=== PATIENT | female | born 1935 | race Caucasian/White ===

== ENCOUNTER → 2016-08-21 | Day surgery (SDC) | payer MEDICARE, OTHER ==
[~2016-08-21] VITALS: Ht 160 cm; Wt 61.8 kg
[~2016-08-21] MED LIST: 0.9% Sodium Chloride 1,000 ML IV ONE; Atropine 0.4 mg/mL Inj IVPUSH PRN; CALC-140 PO; CHOL100045 PO; CYAN100017 SL; Dexamethasone 4 mg/mL Inj IVPUSH PRN; EPHEDrine Sulfate 50 mg/mL Inj IVPUSH PRN; FENO67CA PO; GABA-500 PO; Glucagon 1 mg/mL Inj IV ONE; HYDR-656 PO; Labetalol 5 mg/mL 4 mL Inj IV PRN; Lactated Ringer's 1,000 ML IV ONE; Lactated Ringer's 1,000 ML IV SCH; Lactated Ringer's 500 ML IV PRN; MONT10TA23 PO; MULT1CAP33 PO; OMEG1CAP56 PO; OMEP20CA11 PO; Ondansetron 2 mg/mL 2 mL Inj IVPUSH PRN; Phenylephrine 10,000 mCg/mL Inj IVPUSH PRN; Propofol 10,000 mCg/mL 20 mL Inj ONE; fentaNYL-PF 50 mCg/mL 2 mL Inj IVPUSH PRN; fentaNYL-PF 50 mCg/mL 2 mL Inj ONE
[2016-08-21 12:12] VITALS: BP 155/88; RESP 16; O2SAT 99
--- NOTE | 2016-08-21 12:58 | ED.REPORT ---
HPI-General Illness Date of Service Aug 21, 2016 ED Provider: Jalen Mckeon History of Present Illness: Sent from ENT office w/concern for esophageal food impaction Pt is an 81 year old female with a history of GERD who presents to the ED complaining of throat pain onset yesterday. The pain is primary on the right side. The pt reports that she ate a piece of prime rib yesterday and that it feels stuck; pt was sent from the ENT office with concerns for esophageal food compaction. She denies any other symptoms. Per pt, her symptoms have causes her saliva to come up, causing the need to swallow or spit it out. She has not been able to eat and drink since yesterday. Pt has a history of heartburn and indigestion. Although she has not have similar symptoms, the pt reports that she has experienced food catching in her throat. Nursing Notes Stated Complaint: THROAT SEEMS BLOCKED Chief Complaint: ENT & Mouth Nursing Notes Reviewed: Yes ([employer], meds not reconciled) Allergies: Coded Allergies: codeine (Verified Adverse Reaction, Severe, Nausea,Vomiting, 08/21/16) General Time Seen by MD: 12:57 Chief Complaint Other (throat pain) Hx Obtained From: Patient Arrived By: Walk-in Sudden in Onset?: No Onset Occurred: Yesterday Symptom Duration: Since onset Quality: Painful Severity: Current: Moderate Severity: Maximum: Moderate Recent Healthcare: No recent doctor visit, No recent hospitalization Similar Sx Previous: No Past Medical History Past Medical History Reports: GERD Past Surgical History Recurring hernia Reports: Appendectomy, Cholecystectomy, Hysterectomy Smoking History Unknown if Ever Smoker Social History Alcohol Use: Denies alcohol use Drug Use: Denies drug use Ambulatory Status Independent Review of Systems Full Review of Systems Constitutional: Denies: Fever Ears / Nose / Throat: Reports: Throat pain, Denies: Throat swelling Respiratory: Denies: Non-productive cough, Shortness of breath Complete sys rev & neg: except as marked. Physical Exam Vital Signs Vital Signs Date Time Temp Pulse Resp B/P Pulse Ox O2 Delivery O2 Flow Rate FiO2 08/21/16 12:12 36.6 77 16 155/88 99 Room Air Initial VS: Reviewed, Vital signs normal Head / Eyes: Atraumatic, Normocephalic Neck: Supple, Full range of motion Respiratory: Breath sounds normal, Clear to auscultation, No respiratory distress Cardiovascular: Regular rate & rhythm, Heart sounds normal, Intact distal pulses Abdomen / GI: Soft, Non-tender Extremities: Vascular intact, Neuro intact Skin: Warm, Dry, No cyanosis Neurologic: Alert, Oriented, Nonfocal Psychiatric: Mood/affect normal, Behavior normal, Normal thought content General/Constitutional: Awake, Alert, Well appearing, Cooperative, Not toxic appearing ENT: Atraumatic, Airway patent Holding emesis basin and spitting up her saliva. Interpretation & Diagnostics Lab Results Interpretation Result Diagram: 08/21/16 1321 08/21/16 1321 Test 08/21/16 13:21 White Blood Count 6.9th/mm3 (3.8-10.1) Red Blood Count 4.65mil/mm3 (3.90-5.20) Hemoglobin 13.8g/dL (12.0-15.6) Hematocrit 41.2% (35.0-46.0) Mean Corpuscular Volume 88.6fL (81-100) Mean Corpuscular Hemoglobin 29.7pg (27.0-35.0) Mean Corpuscular Hemoglobin Concent 33.5% (32.0-37.0) Red Cell Distribution Width 13.5% (12.3-15.4) Platelet Count 287bil/L (150-400) Neutrophils (%) (Auto) 62.0% (40-74) Lymphocytes (%) (Auto) 24.2% (14-46) Monocytes (%) (Auto) 10.0% (4-12) Eosinophils (%) (Auto) 3.3% (0-5) Basophils (%) (Auto) 0.4% (0-3) Sodium Level 144mEq/L (134-144) Potassium Level 3.4mEq/L (3.5-5.2) Chloride Level 104mEq/L (97-108) Carbon Dioxide Level 24mmol/L (18-29) Blood Urea Nitrogen 14mg/dL (8-27) Creatinine 0.71mg/dL (0.57-1.00) Estimat Glomerular Filtration Rate 113mL/min (>59) Glucose Level 107mg/dL (60-99) Calcium Level 10.2mg/dL (8.5-10.1) Total Bilirubin 0.5mg/dL (0.0-1.2) Aspartate Amino Transf (AST/SGOT) 25U/L (0-50) Alanine Aminotransferase (ALT/SGPT) 19U/L (0-32) Alkaline Phosphatase 44U/L (25-165) Total Protein 7.8g/dL (6.4-8.4) Albumin 4.5g/dL (3.4-5.0) Hold Smith Top Tube Received (Received) Lab Results Interpretation: CBC normal CMP normal X-Ray Interpretation Xray Interpretation: IMPRESSION: 8 mm density projects anterior to the C5 vertebral body, possibly ingested foreign body within the cervical esophagus. Dictated by: Brennan Rodriguez M.D. on 08/21/2016 at 14:02 Study Performed: Soft tissue X-Ray Ordered: Neck Interpretation / Wet Read by: Interpret - Radiologist Re-Eval/Medical Decision Med Decision/Clinical Course This is an 81-year-old female who presents with a concern from the ENT office for an esophageal food impaction. She reports inability to swallow and a sense of a foreign body obstruction since eating some prime rib steak yesterday. She reports a number of months of some intermediate dysphagia where she field with food catches, often at the beginning of a meal. She has not had a prior obstruction, does not recall prior endoscopy. She does have chronic GERD and is on chronic PPI therapy. She is not on any anticoagulants. Symptoms started yesterday around 1 PM and persisted. She has been unable to drink any liquids, and intermittently spits up her saliva. She denies any airway, cough, or respiratory symptoms. Exam she appears well in no distress. She has had to spit up her saliva intermittently. IV is placed, the patient's R he tried cold therapy, received additional glucagon but remains symptomatic. Her symptoms are fairly high up, GI requested a soft tissue neck which was performed. The plan is for the patient to go to endoscopy with anesthesia. Source of Hx: Old records Differential Diagnosis: Negative: Abdominal pain, Acute coronary syndrome, Allergies, Drug dependence, G-tube repair/replacement, Influenza, Malingering, Medical clearance, Neutropenia Counseled Regarding: Diagnosis, Need for follow-up, When/why to return to ED Discharge & Departure Primary Impression: Impacted esophageal foreign body Disposition: Home Discharge Condition All VS Reviewed: Yes Condition: Stable Referrals: [facility] Scribe Attestation Portions of this note were transcribed by Giovana Miranda. I, Dr. Mckeon personally performed the history, physical exam and medical decision-making; I reviewed and confirmed the accuracy of the information in the transcribed note. Signed by: Jovanna Barfield, 08/21/16 and 13:50. copies to: [facility] Jalen Mckeon MD Aug 21, 2016 12:58 Giovana Escalante Aug 21, 2016 13:04
[2016-08-21 13:24] LABS: BASOPHILS % (AUTO) 0.4 % (0-3); EOSINOPHILS % (AUTO) 3.3 % (0-5); Mean Corpuscular Hemoglobin 29.7 pg (27.0-35.0); Mean Corpuscular Volume 88.6 fL (81-100); Platelet Count 287 bil/L (150-400)
--- NOTE | 2016-08-21 14:06 | DRSVH ---
PROCEDURE: X-RAY NECK SOFT TISSUE ([id number]) INDICATIONS: 81-year-old female with foreign body sensation in the throat. TECHNIQUE: 2 views of the neck were acquired. COMPARISON: None. FINDINGS: Airway: The airway appears patent. Soft tissues: Prevertebral soft tissues are normal in thickness. The epiglottis and aryepiglottic f olds appear normal. No soft tissue gas. 8 mm density projects anterior to the C5 vertebral body. Bones: No suspicious bony lesions. Visualized cervical spine is normally aligned, with moderate C5- C6 and C6-C7 disc degeneration. IMPRESSION: 8 mm density projects anterior to the C5 vertebral body, possibly ingested foreign body w ithin the cervical esophagus. Dictated by: Brennan Rodriguez M.D. on 08/21/2016 at 14:02 Approved by: Brennan Rodriguez M.D. on 08/21/2016 at 14:05
--- NOTE | 2016-08-21 16:32 | PCM.HPANE ---
Patient Data Surgeon Admitting Provider: Attending Provider: Primary Care Physician:Anat Other Provider: Reason for Visit Throat Seems Blocked Ht/WT & BMI Height (Feet): 5 Height (Inches): 3 Weight (Kilograms): 61.82 Body Mass Index Allergies Coded Allergies: codeine (Verified Adverse Reaction, Severe, Nausea,Vomiting, 08/21/16) Past Anesthesia History Anesthesia History: Denies:: Abnormal Airway, Anesthesia Reactions, Difficult Intubation, Fam Anesthesia Reaction, Fam Malignant Hypertherm, Malignant Hyperthermia Medications Reported Medications Calcium Carbonate/Vitamin D3 (Calcium + Vitamin D Tablet)1 Each Tablet1 Each PO QPM 08/21/16 [place]-3 Fatty Acids/Fish Oil ([place] 3 1,000 mg Softgel)1 Each Capsule1 Each PO QPM 08/21/16 Multivitamin (Multivitamins)1 Each Capsule1 Each PO QAM 08/21/16 Cyanocobalamin (Vitamin B-12) (Vitamin B-12)1,000 Mcg Tab.subl1,000 Mcg SL QAM 08/21/16 Cholecalciferol (Vitamin D3) (Vitamin D)1,000 Unit Capsule1,000 Unit PO BID 08/21/16 hydrOXYzine Hcl (HydrOXYzine Hcl)25 Mg Tfzexg27 Mg PO BID 08/21/16 Fenofibrate,Micronized (Fenofibrate)67 Mg Pmrkhlg17 Mg PO DAILY 08/21/16 Gabapentin 100 Mg [id number] Mg PO BID 08/21/16 Omeprazole 20 Mg Capsule.dr20 Mg PO BID 08/21/16 Montelukast 10 Mg Ipivcf49 Mg PO QPM 08/21/16 History History of ENT Problems?: Yes HEENT History: Denies:: Abnormal Airway Cataracts Difficult Intubation Dysphagia Glaucoma Hearing Problem Sinus Problem TMJ Denture Type: Full- Upper Full- Lower Teeth Condition: Within Normal Limits Hx of Heart Problems?: No Cardiovascular History: Denies:: AICD Abdominal Aortic Aneurism Atrial Fibrillation Cardiac Surgery Chest Pain Congestive Heart Failure Coronary Artery Disease Edema Heart Murmur Hypertension Irregular Heartbeat Pacemaker Peripheral Vascular Rheumatic Fever Thrombophlebitis Valvular Heart Disease Hx of Respiratory Problem?: No Respiratory History: Denies:: Asthma COPD Chest Surgery Cough Dyspnea Emphysema Hemoptysis Oxygen Administration Pneumonia Pulmonary Embolism Tuberculosis Use of C-PAP Machine Use of Inhalers / NEBS Hx Neurologic Problems?: No Neurological History: Denies:: Alzheimer's Disease CVA Dementia Dizziness Headaches Multiple Sclerosis Parkinson's Disease Peripheral Neuropathy Seizures TIA Hx of GI Problems?: No Hx of Problems?: No HX of Peritoneal Dialysis: No Female Hx: Denies:: Currently Endometriosis Pelvic Inflammatory Problems with Breasts? Hx Musculoskeletal Problems?: No Musculoskeletal History: Denies:: Back Injury Degenerative Joint Fibromyalgia Joint Replacement Musculoskeletal Trauma Myasthenia Gravis Osteoarthritis Rheumatoid Arthritis Systemic Lupus Psycho Social History: Denies:: Anxiety Bipolar Disorder Hx Depression Suicide Attempt Hx Surgeries?: Yes Hx Any Other Health Problems?: No Hx Diabetes: No Smoking Status: Unknown if Ever Smoker Stop/Bang Risk Assessment Category Category 1A: Patient has history of documented sleep apnea, and HAS NOT received any narcotic, sedative or anesthesia administration during this stay. Category 1B: Patient has history of documented sleep apnea, and HAS received any narcotic , sedative or anesthesia administration during this stay Category 2: Patient has SUSPECTED Obstructive Sleep Apnea, and HAS received any narcotic , sedative or anesthesia administration during this stay. Category 3: Patient has SUSPECTED Obstructive Sleep Apnea and HAS NOT received narcotic, sedative or anesthesia administration during this stay. Category 4: Outpatient in Procedural Areas with known sleep apnea or who screen positive for High Risk via the STOP/BANG questionnaire. Exam Exam Vital Signs Vital Signs Date Time Temp Pulse Resp B/P Pulse Ox O2 Delivery O2 Flow Rate FiO2 08/21/16 12:12 36.6 77 16 155/88 99 Room Air General Appearance: Alert, Oriented X3, Cooperative, No Acute Distress HEENT/AIRWAY: MP 2 Lungs: Clear to Auscultation, Normal Air Movement Heart: Exam Unremarkable Meds/Labs/Diagnostics Admission Meds Current Medications Glucagon 1 mg 1 mg ONCE ONCE IV Last administered on 08/21/16 13:42; Start 08/21/16 at 13:00; Stop 08/21/16 at 13:01; Status DC Sodium Chloride (Normal Saline) 1,000 ml @ 0 mls/hr Q0M ONCE IV Last administered on 08/21/16 14:44; Start 08/21/16 at 14:25; Stop 08/21/16 at 14:26; Status DC Labs Test 08/21/16 13:21 White Blood Count 6.9th/mm3 (3.8-10.1) Red Blood Count 4.65mil/mm3 (3.90-5.20) Hemoglobin 13.8g/dL (12.0-15.6) Hematocrit 41.2% (35.0-46.0) Mean Corpuscular Volume 88.6fL (81-100) Mean Corpuscular Hemoglobin 29.7pg (27.0-35.0) Mean Corpuscular Hemoglobin Concent 33.5% (32.0-37.0) Red Cell Distribution Width 13.5% (12.3-15.4) Platelet Count 287bil/L (150-400) Neutrophils (%) (Auto) 62.0% (40-74) Lymphocytes (%) (Auto) 24.2% (14-46) Monocytes (%) (Auto) 10.0% (4-12) Eosinophils (%) (Auto) 3.3% (0-5) Basophils (%) (Auto) 0.4% (0-3) Sodium Level 144mEq/L (134-144) Potassium Level 3.4mEq/L (3.5-5.2) Chloride Level 104mEq/L (97-108) Carbon Dioxide Level 24mmol/L (18-29) Blood Urea Nitrogen 14mg/dL (8-27) Creatinine 0.71mg/dL (0.57-1.00) Estimat Glomerular Filtration Rate 113mL/min (>59) Glucose Level 107mg/dL (60-99) Calcium Level 10.2mg/dL (8.5-10.1) Total Bilirubin 0.5mg/dL (0.0-1.2) Aspartate Amino Transf (AST/SGOT) 25U/L (0-50) Alanine Aminotransferase (ALT/SGPT) 19U/L (0-32) Alkaline Phosphatase 44U/L (25-165) Total Protein 7.8g/dL (6.4-8.4) Albumin 4.5g/dL (3.4-5.0) Hold Smith Top Tube Received (Received) Plan Impression Patient chart reviewed, patient interviewed and anesthestic plan with risks, benefits, and alternatives discussed, and informed consent obtained. ASA Physical Status: ASA2 Mod Systemic Disease Anesthetic Plan: MAC Bene/Risks/Altern/Consents: Yes HP Complete Prior to Induction: Yes Joe Moss MD Aug 21, 2016 16:32
[2016-08-21 16:48] VITALS: BP 148/93; PULSE 82; RESP 18; O2SAT 98
[2016-08-21 17:43] VITALS: BP 131/73; PULSE 72; RESP 16; O2SAT 97
[2016-08-21 17:45] VITALS: BP 130/68; PULSE 75; RESP 16; O2SAT 97
--- NOTE | 2016-08-21 17:46 | PCM.ANEP1 ---
Post Anesthesia PACU Phase 1 Assessment Vital Signs Vital Signs Date Time Temp Pulse Resp B/P Pulse Ox O2 Delivery O2 Flow Rate FiO2 08/21/16 17:43 36.6 72 16 131/73 97 Room Air 08/21/16 16:48 82 18 148/93 98 Room Air 08/21/16 12:12 36.6 77 16 155/88 99 Room Air Anesthetic Administered: MAC Level of Alertness: Awake, talking BARBOSA's with Equal Strength: Yes Pain: No Nausea or Vomiting: No CV Function & Hydration Stable: Yes Airway Device: Lungs: Clear to Auscultation PACU Phase 2 Assessment Complications: No Follow up Care: No Patient Instructions Provided: N/A Joe Moss MD Aug 21, 2016 17:46
--- NOTE | 2016-08-21 17:51 | PCM.ENDEGD ---
EGD Date of Service: Aug 21, 2016 Physician Akhil Neff MD Pre Procedure Diagnosis: Foreign body Post Procedure Dx & Findings: Foreign body has passed significant esophagitis with luminal narrowing Procedure Esophagogastroduodenoscopy PROCEDURE IN DETAIL: After proper sedation, Olympus video endoscope was inserted into patient's mouth and esophagus was successfully intubated. Scope introduced esophagus. Esophagus showed normal shiny whitish mucosa consistent with squamous cell component. Z line was irregular and inflamed. Right above the Z line, there was evidence of his ring. Lumen was about 12-14 mm in size. There was inflammation around the Schatzki's ring. Scope introduced stomach. Stomach food residuals. Stomach was decompressed and scope was withdrawn. Impression Food has passed. Esophageal inflammation with narrowing but relatively wide-open lumen. Recommendation High-dose PPI Full liquid diet for 3 days and soft diet until patient is follow up in GI in about 2 weeks. Presedation Assessment Risks and Benefits Informed consent was obtained from the patient after all risks and benefits including but not limited to drug reaction, infection, pain, bleeding, perforation, as well as alternatives were discussed. Patient monitoring Continuous pulse oximetry, cardiac monitoring, blood pressure monitoring, IV access, and oxygen at 2L per nasal cannula. Complications There were no periprocedural complications identified. Post Procedure Plan Post Procedure Recommendations 1. Restrict activities today. 2. Resume normal activities in the morning. 3. Resume medications. 4. GERD behavioral modification: - Avoid fatty, acidic, spicy, large meals - Do not lie down after meals - Do not eat or drink anything for at least 2 1/2 hours before going to bed at night - Discontinue tobacco and alcohol - Decrease or avoid caffeine - Avoid chocolate and mints - Decrease weight - Avoid aspirin and non steroidal anti-inflammatory agents (NSAID) such as Aleve, Advil, Mobic, Naproxen, Ibuprofen, etc 5. Add proton pump inhibitor. Take 30 minutes before 1st meal of the day. 6. Patient informed of normal post procedure side effects as bloating, drowsiness, blood streaking in the stool 7. If gastric biopsy reveal H.pylori, continue with appropriate treatment 8. If small bowel biopsy reveals celiac, continue with appropriate treatment 9. Please don't hesitate to call me with any questions Akhil Neff MD Aug 21, 2016 17:51
[2016-08-21 18:00] VITALS: BP 132/61; PULSE 72; RESP 16; O2SAT 96
[2016-08-21 18:15] VITALS: BP 136/76; PULSE 70; RESP 18; O2SAT 97
== END | disposition home or self-care (01) ==
LOC: SED 11:55 → ORA 16:44
PROVIDERS: ATTEND Internal Medicine
DX: K22.2 Esophageal obstruction (principal); K20.8 Other esophagitis; T18.128A Food in esophagus causing other injury, initial encounter; K21.9 Gastro-esophageal reflux disease without esophagitis; Z88.8 Allergy status to other drugs, medicaments and biological substances; Z90.710 Acquired absence of both cervix and uterus
CPT/HCPCS: 36415; 43235; 70360; 80053; 85025; 96361; 96374; 99285; J1610; J3010; J7030; J7120

== ENCOUNTER → 2016-09-28 | Day surgery (SDC) | payer MEDICARE, OTHER ==
[~2016-09-28] VITALS: Ht 160 cm; Wt 62.1 kg
[~2016-09-28] MED LIST changes: -0.9% Sodium Chloride 1,000 ML IV ONE; -Atropine 0.4 mg/mL Inj IVPUSH PRN; -Dexamethasone 4 mg/mL Inj IVPUSH PRN; -EPHEDrine Sulfate 50 mg/mL Inj IVPUSH PRN; -Glucagon 1 mg/mL Inj IV ONE; +HYDR-3605 PO; -HYDR-656 PO; -Labetalol 5 mg/mL 4 mL Inj IV PRN; -Lactated Ringer's 1,000 ML IV ONE; -Lactated Ringer's 1,000 ML IV SCH; -Lactated Ringer's 500 ML IV PRN; +MULT-1018 PO; -MULT1CAP33 PO; -Ondansetron 2 mg/mL 2 mL Inj IVPUSH PRN; +PANT40TA3 PO; -Phenylephrine 10,000 mCg/mL Inj IVPUSH PRN; -Propofol 10,000 mCg/mL 20 mL Inj ONE; +Sodium Chloride LOK Flush 10 mL Syringe IV PRN; -fentaNYL-PF 50 mCg/mL 2 mL Inj ONE
[2016-09-28 11:16] VITALS: BP 138/77; PULSE 59; RESP 16; O2SAT 96
[2016-09-28] MEDS: 0.9% Sodium Chloride 1,000 ML IV PRN ×2 (11:45→11:55)
--- NOTE | 2016-09-28 12:00 | PCM.ENDEGD ---
EGD Date of Service: Sep 28, 2016 Physician Akhil Neff MD Pre Procedure Diagnosis: History of food impaction dysphagia Post Procedure Dx & Findings: pyloric channel irritation hiatal hernia and Schatzki's ring Procedure Esophagogastroduodenoscopy PROCEDURE IN DETAIL: After proper sedation, Olympus video endoscope was inserted into patient's mouth and esophagus was successfully intubated. Scope introduced esophagus. Esophagus showed normal shiny whitish mucosa consistent with squamous cell component. Z line was at 40 cm from the incisors. It was a moderate narrowing with scarring consistent with Schatzki's ring or even a peptic stricture. Lumen was about 12-14 mm in size. Inflammation resolves. Biopsies obtained. 2 cm hiatal hernia noted. Scope further advanced to the stomach. Stomach showed normal shiny mucosa with normal appearing rugae folds without any ulcer mass erosion. However on the pyloric channel, there was a 2-3 mm irritation without slightly discolored and pale. Biopsy obtained. Cardia fundus body antrum pylorus were all visualized. Retroflexion was done. Stomach was easily inflated and deflatable using air. Scope further advanced to the distal duodenum. Duodenum revealed normal villous structures with normal appearing folds without any mass ulcer erosion. Impression pyloric channel irritation hiatal hernia Schatzki's ring or peptic scarring. Lumen was 12-14 mm in size Recommendation Continue pantoprazole Since seen her on PPI, she has not had any episodes of dysphagia. If dysphagia recurs, follow up in GI clinic for dilation. Presedation Assessment Risks and Benefits Informed consent was obtained from the patient after all risks and benefits including but not limited to drug reaction, infection, pain, bleeding, perforation, as well as alternatives were discussed. Patient monitoring Continuous pulse oximetry, cardiac monitoring, blood pressure monitoring, IV access, and oxygen at 2L per nasal cannula. Periprocedural Fentanyl: Fentanyl 50mcg Incrementally Midazolam: Midazolam 3mg Incrementally Complications There were no periprocedural complications identified. Post Procedure Plan Post Procedure Recommendations 1. Restrict activities today. 2. Resume normal activities in the morning. 3. Resume medications. 4. GERD behavioral modification: - Avoid fatty, acidic, spicy, large meals - Do not lie down after meals - Do not eat or drink anything for at least 2 1/2 hours before going to bed at night - Discontinue tobacco and alcohol - Decrease or avoid caffeine - Avoid chocolate and mints - Decrease weight - Avoid aspirin and non steroidal anti-inflammatory agents (NSAID) such as Aleve, Advil, Mobic, Naproxen, Ibuprofen, etc 5. Add proton pump inhibitor. Take 30 minutes before 1st meal of the day. 6. Patient informed of normal post procedure side effects as bloating, drowsiness, blood streaking in the stool 7. If gastric biopsy reveal H.pylori, continue with appropriate treatment 8. If small bowel biopsy reveals celiac, continue with appropriate treatment 9. Please don't hesitate to call me with any questions Akhil Neff MD Sep 28, 2016 12:00
[2016-09-28 12:01] VITALS: BP 117/68; PULSE 64; RESP 14; O2SAT 95
[2016-09-28 12:11] VITALS: BP 122/68; PULSE 60; RESP 14; O2SAT 95
[2016-09-28 12:21] VITALS: BP 133/70; PULSE 57; RESP 14; O2SAT 96
--- NOTE | 2016-09-30 10:36 | PATH ---
SURGICAL PATHOLOGY Attending Physician:Akhil Neff M.D. CASE STATUS: Signed Out PATIENT NAME: SANDIP GLYNN PID: [id number] : 1935 DATE COLLECTED:09/28/2016 19:05 SPECIMEN: 1: Esophagus, Biopsy 2: Gastric, Biopsy CLINICAL HISTORY: DYSPHAGIA 1). ESOPHAGUS BIOPSY 2). PYLORIC CHANNEL BIOPSY (RULE OUT H PYLORI) FINAL DIAGNOSIS: 1.ESOPHAGUS, BIOPSY: - SQUAMOCOLUMNAR JUNCTIONAL MUCOSA, POSITIVE FOR INTESTINAL METAPLASIA. - Negative for dysplasia and malignancy. 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 SEE COMMENT. - Negative for Helicobacter organisms by immunohistochemistry. - Negative for dysplasia and malignancy. COMMENT: Part 2:" Designated as "pyloric channel biopsy" demonstrates fragments of gastric antral-type mucosa with goblet cell metaplasia/ intestinal metaplasia. However, based on the anatomic location the consideration of transitional epithelium (pyloro-duodenal junctional mucosa) cannot be completely excluded. There is no evidence of dysplasia or malignancy. Endoscopic correlation to determine the exact location of the biopsy is recommended. ICD10 R13.10 GROSS DESCRIPTION: The specimen is received in two formalin filled containers labeled with the patient's name. 1). The specimen is labeled "distal esophagus" and consists of 2 portions of tissue which aggregate to 0.3 x 0.2 x 0.2 CM. The specimen is entirely submitted in cassette 1A. 2). The specimen is labeled "pyloric channel" and consists of a 0.2 x 0.2 x 0.1 CM portion of tissue which is entirely submitted in cassette 2A. 09/28/2016DC MICRO DESCRIPTION: 2.An immunohistochemical stain was performed to evaluate for Helicobacter pylori microorganisms and is negative. A control stain showed appropriate reactivity. This test was developed and its performance characteristics determined by [facility]. It has not been cleared or approved by the U. [place]. Food and Drug Administration. The FDA has determined that such clearance or approval is not necessary. This test is used for clinical purposes. It should not be regarded as investigational or for research. ICD-9 CODES: CPT CODES: 1: 34848 2: 95167, 50303 Electronically Signed Out Nikolay Mejía MD [facility] [address], [place] [address] Technical component performed at [facility], [facility] [address], [place], [address]
== END | disposition home or self-care (01) ==
LOC: END 00:13
PROVIDERS: ATTEND Internal Medicine
DX: K29.50 Unspecified chronic gastritis without bleeding (principal); K22.70 Barrett's esophagus without dysplasia; K44.9 Diaphragmatic hernia without obstruction or gangrene; K22.2 Esophageal obstruction; K31.89 Other diseases of stomach and duodenum; K21.0 Gastro-esophageal reflux disease with esophagitis
CPT/HCPCS: 43239; G0500; J2250; J3010; J7030